=== PATIENT | female | born 1955 | race Caucasian/White ===

== ENCOUNTER 2017-04-19 07:41 | Day surgery (SDC) | payer BC ==
--- NOTE | ~2017-04-19 | EGD ---
EGD REPORT [facility] [address] [address] NAME: HILARIA ESPOSITO : 55 STATUS : REG [facility]#: [id number] AGE: 61 ADM/REG DATE : 04/19/17 MR#: [id number] REPORT SERV DATE: 04/19/17 DICTATED BY: MARCO WALKER DATE: 04/19/17 REPORT STATUS : Draft TRANSCRIBED BY: [employer] DATE: 04/19/17 Endoscopy Center Patient Name: Hilaria Esposito Date of : 1955 Attending MD: MARCO WALKER MD Procedure Date No Time: 04/19/2017 Procedure: Colonoscopy Indications: Screening for colon cancer: Colorectal cancer in distant relative(s) Referring MD: FLORIAN RODRIGUEZ MD Medicines: as per anesthesia Complications: No immediate complications. Procedure: Pre-Anesthesia Assessment: - ASA Grade Assessment: III - A patient with severe systemic disease. After I obtained informed consent, the scope was passed under direct vision. Throughout the procedure, the patient's blood pressure, pulse, and oxygen saturations were monitored continuously. The PCF [id number] was introduced through the anus and advanced to the cecum, identified by appendiceal orifice and ileocecal valve. The colonoscopy was performed without difficulty. The patient tolerated the procedure. The quality of the bowel preparation was adequate to identify polyps. Findings: The perianal and digital rectal examinations were normal. A sessile polyp was found in the cecum. The polyp was 3 mm in size. The polyp was removed with a cold biopsy forceps. Resection and retrieval were complete. A few small-mouthed diverticula were found in the sigmoid colon. Internal hemorrhoids were found during endoscopy and were mild. Impression: - One 3 mm polyp in the cecum. Resected and retrieved. - Diverticulosis in the sigmoid colon. - Internal hemorrhoids. Recommendation: - Await pathology results. - Repeat colonoscopy for surveillance based on pathology results. Procedure Code(s): --- Professional --- 85649, Colonoscopy, flexible, proximal to splenic flexure; with biopsy, single or multiple EGD REPORT [place] [address] [address] NAME: HILARIA ESPOSITO : 55 STATUS : REG [facility]#: [id number] AGE: 61 ADM/REG DATE : 04/19/17 MR#: [id number] REPORT SERV DATE: 04/19/17 DICTATED BY: MARCO WALKER DATE: 04/19/17 REPORT STATUS : Draft TRANSCRIBED BY: [employer] DATE: 04/19/17 Diagnosis Code(s): --- Professional --- D12.0, Benign neoplasm of cecum K64.8, Other hemorrhoids K57.30, Diverticulosis of large intestine without perforation or abscess without bleeding Z12.11, Encounter for screening for malignant neoplasm of colon Z80.0, Family history of malignant neoplasm of digestive organs CPT copyright 2013 [employer]. All rights reserved. The codes documented in this report are preliminary and upon environmental adviser review may be revised to meet current compliance requirements. MARCO WALKER MD 04/19/2017 11:38 AM This report has been signed electronically. Number of Addenda: 0 Note Initiated On: 04/19/2017 10:[address] [place], [place] [address] [address]
--- NOTE | ~2017-04-19 | EGD ---
EGD REPORT [facility] [address] [address] NAME: HILARIA ESPOSITO : 55 STATUS : REG [facility]#: [id number] AGE: 61 ADM/REG DATE : 04/19/17 MR#: [id number] REPORT SERV DATE: 04/19/17 DICTATED BY: MARCO WALKER DATE: 04/19/17 REPORT STATUS : Draft [facility]ANSCRIBED BY: [facility] DATE: 04/19/17 [facility] Patient Name: Hilaria Esposito Date of : 1955 Attending MD: MARCO WALKER MD Procedure Date No Time: 04/19/2017 Procedure: Upper GI endoscopy Indications: Heartburn, Suspected esophageal reflux Referring MD: FLORIAN RODRIGUEZ MD Medicines: as per anesthesia Complications: No immediate complications. Procedure: Pre-Anesthesia Assessment: - ASA Grade Assessment: III - A patient with severe systemic disease. After obtaining informed consent, the endoscope was passed under direct vision. Throughout the procedure, the patient's blood pressure, pulse, and oxygen saturations were monitored continuously. The GIF H190 [id number] was introduced through the mouth, and advanced to the third part of duodenum. The upper GI endoscopy was accomplished without difficulty. The patient tolerated the procedure. Findings: The examined esophagus was normal. Multiple sessile polyps were found in the gastric body. Biopsies were taken with a cold forceps for histology. The cardia and gastric fundus were normal on retroflexion. The examined duodenum was normal. Impression: - Normal esophagus. - Multiple gastric polyps. Biopsied. - Normal examined duodenum. Recommendation: - Await pathology results. - Follow an antireflux regimen. - Continue present medications. Procedure Code(s): --- Professional --- 42139, Esophagogastroduodenoscopy, flexible, transoral; with biopsy, single or multiple Diagnosis Code(s): --- Professional --- K31.7, Polyp of stomach and duodenum R12, Heartburn EGD REPORT [facility] [address] [place], [place] [address]. [address] NAME: HILARIA ESPOSITO : 55 STATUS : REG [facility]#: [id number] AGE: 61 ADM/REG DATE : 04/19/17 MR#: [id number] REPORT SERV DATE: 04/19/17 DICTATED BY: MARCO WALKER. DATE: 04/19/17 REPORT STATUS : Draft TRANSCRIBED BY: [employer] DATE: 04/19/17 CPT copyright 2013 [employer]. All rights reserved. The codes documented in this report are preliminary and upon medical biller coder review may be revised to meet current compliance requirements. MARCO WALKER MD 04/19/2017 11:19 AM This report has been signed electronically. Number of Addenda: 0 Note Initiated On: 04/19/2017 10:58 AM Scope Withdrawal Time 0 hours 0 minutes 0 seconds [address] [facility] [place] [address]
[~2017-04-19 07:41] MED LIST: ACCU20 PO; ADVAIR100 INH; ALEVE220 MG PO; ALLEGRA180 PO; ASAB PO; BIAXIN5 PO; C5; CALTRAT600; CENTRUM PO; CITRACAL PO; DIOV160 PO; ENABLEX15 PO; ENABLEX7.5 PO; FISH-EPA1000 MG PO; FLONASE NAS; HARD NAILS PO; HYALURONIDASE; HYDROCHLOROT25 MG PO; IMMUNE GLOBULIN; MAX25 PO; MULT VIT; NASONEX NAS; NEXIUM40 PO; OSTEO BI-FLEX1 EACH PO; OSTEO BI-FLX PO; PCET PO; PROAIR HFA INH; PROBIOTIC PO; PROVHFA INH; SANCTURA XR60 MG PO; TRICOR145 PO; UBIDECARENONE PO; VIACTIV PO; VITAMIN B-121000 MC1 SL; VITAMIN B-625 MG OR; VITAMIN C500 M3 PO; VITAMIN D1000 UNI1 PO; VITAMIN E PO; VITC500 PO; VOLTXR100 PO
== END 2017-04-19 23:59 | disposition home health service (06) ==
LOC: DMU 07:41
PROVIDERS: Internal Medicine Gastroenterology
PROC: 0DB68ZX Excision of Stomach, Via Natural or Artificial Opening Endoscopic, Diagnostic (ICD-10-PCS; principal; 2017-04-19 09:30)
PROC: 0DBH8ZX Excision of Cecum, Via Natural or Artificial Opening Endoscopic, Diagnostic (ICD-10-PCS; 2017-04-19 09:30)
DX: Z12.11 Encounter for screening for malignant neoplasm of colon (principal); K31.7 Polyp of stomach and duodenum; K57.30 Diverticulosis of large intestine without perforation or abscess without bleeding; K64.8 Other hemorrhoids; I10 Essential (primary) hypertension; J45.909 Unspecified asthma, uncomplicated; K21.9 Gastro-esophageal reflux disease without esophagitis; G43.909 Migraine, unspecified, not intractable, without status migrainosus; M19.90 Unspecified osteoarthritis, unspecified site; D64.9 Anemia, unspecified; D80.3 Selective deficiency of immunoglobulin G [IgG] subclasses; Z80.0 Family history of malignant neoplasm of digestive organs; Z88.8 Allergy status to other drugs, medicaments and biological substances; Z79.899 Other long term (current) drug therapy; Z98.890 Other specified postprocedural states
CPT/HCPCS: 88305